=== PATIENT | male | born 1980 | race Two or more races ===

== ENCOUNTER 2018-10-15 08:25 | Observation (INO) ==
--- NOTE | 2018-10-15 15:42 | P.HPIM ---
History of Present Illness Primary Care Physician: UNKNOWN Chief Complaint: Chest pain History of Present Illness: This is a 38-year-old male patient with no known medical history presented to the ED with complaints of chest pain. Patient states that the chest pain has been ongoing for the past 2 weeks, he states that it initially started when he was driving, the pain was midsternal and sharp in nature, he states that the pain would come and go without any known aggravating or alleviating factors. He denies any radiation of the pain. Denies any associated nausea, vomiting, sweating, does admit to associated shortness of breath. Denies ever having this type of pain before. Patient states that this pain is been ongoing on and off for the past 2 weeks. He does admit to some lightheadedness with the pain. He states that last evening he was unable to sleep and became anxious regarding the pain and therefore this is what prompted his presentation to the ED. He denies ever having a cardiac stress test in the past. Does not know what his cholesterol is. Denies any tobacco abuse. He quit 1 year ago, smokes since his teen years. Denies any alcohol or drug use. Family history significant for diabetes. Denies any recent fevers, chills, headache, abdominal pain, nausea, vomiting, diarrhea or dysuria. Denies any recent antibiotics. Does not follow closely with the PCP. Review of Systems Review of Systems: all other systems reviewed are negative [facility] Medical History Medical History Patient denies medical problems (Acute) Surgical History Surgical History Hx of cholecystectomy (Acute) Family History Family History Other Diabetes Social History Social History Substance History: No History of Abuse Second Hand Smoke Exposure: No Smoking Status: Former smoker Tobacco Type: Cigarettes How Often Do You Have a Drink Containing Alcohol: Never Medications and Allergies Allergies Allergy/AdvReac Type Severity Reaction Status Date / Time No Known Allergies Allergy Verified 10/15/18 08:34 Home Medications Medication Instructions Recorded Confirmed Type No Known Home Medications 10/15/18 10/15/18 History Active Medications: Active Medications Nitroglycerin (Nitrostat Sl) 0.4 mg SL Q5M PRN PRN Reason: CHEST PAIN Sodium Chloride (Ns Flush) 2 ml IV.FLUSH BID JULIO Sodium Chloride (Ns Flush) 2 ml IV.FLUSH PRN PRN PRN Reason: FLUSH AFTER USING IV ACCESS Physical Exam Vital signs: Vital Signs 10/15/18 13:32 10/15/18 14:41 10/15/18 15:10 Temperature 99.2 F 99.2 F Pulse Rate 68 67 73 Respiratory Rate 18 14 Blood Pressure 112/53 L 112/53 L 112/52 L Pulse Oximetry 96 95 93 L Intake & Output 10/14/18 10/15/18 10/15/18 18:59 06:59 18:59 Weight 157.2 kg Other: Date of Last Bowel Movement 10/14/18 Weight On Admission 157.2 kg Narrative: GENERAL: Well-developed, well-nourished patient in [facility]. SKIN: Warm and dry. No rash. HEAD: Normocephalic. Atraumatic. EYES: Pupils equal and round. No scleral icterus. No injection or drainage. ENT: No nasal bleeding or discharge. Mucous membranes pink and moist. NECK: Supple. Trachea midline. CARDIOVASCULAR: Regular rate and rhythm. S1, S2 noted. No murmur appreciated. RESPIRATORY: No accessory muscle use. Clear to auscultation. Breath sounds equal bilaterally. GASTROINTESTINAL: Abdomen soft, non-tender, nondistended. Normoactive bowel sounds x4. MUSCULOSKELETAL: No obvious deformities. Extremities without clubbing, cyanosis , or edema. NEUROLOGICAL: Awake and alert. No obvious cranial nerve deficits. Motor grossly within normal limits. 5/5 muscle strength in bilateral upper and lower extremities. Normal speech. PSYCHIATRIC: Appropriate mood and affect; insight and judgment normal. Caprini VTE Risk Assessment Caprini VTE Risk Assessment: No/Low Risk (score <= 1) Caprini Risk Assessment Model: Point Value = 1 Point Value = 2 Point Value = 3 Point Value = 5 Age 41-60 Minor surgery BMI > 25 kg/m2 Swollen legs Varicose veins or History of unexplained or recurrent spontaneous Oral contraceptives or hormone replacement Sepsis (< 1 month) Serious lung disease, including pneumonia (< 1 month) Abnormal pulmonary function Acute myocardial infarction Congestive heart failure (< 1 month) History of inflammatory bowel disease Medical patient at bed rest Age 61-74 Arthroscopic surgery Major open surgery (> 45 min) Laparoscopic surgery (> 45 min) Malignancy Confined to bed (> 72 hours) Immobilizing plaster cast Central venous access Age >= 75 History of VTE Family history of VTE Factor V Leiden Prothrombin [id number] Lupus anticoagulant Anticardiolipin antibodies Elevated serum homocysteine Heparin-induced thrombocytopenia Other congenital or acquired thrombophilia Stroke (< 1 month) Elective arthroplasty Hip, pelvis, or leg fracture Acute spinal cord injury (< 1 month) Prophylaxis Regimen: Total Risk Factor Score Risk Level Prophylaxis Regimen 0-1 Low Early ambulation 2 Moderate Order ONE of the following: *Sequential Compression Device (SCD) *Heparin 5000 units SQ BID 3-4 Higher Order ONE of the following medications: *Heparin 5000 units SQ TID *Enoxaparin/Lovenox 40 mg SQ daily (WT < 150 kg, CrCl > 30 mL/min) *Enoxaparin/Lovenox 30 mg SQ daily (WT < 150 kg, CrCl > 10-29 mL/min) *Enoxaparin/Lovenox 30 mg SQ BID (WT < 150 kg, CrCl > 30 mL/min) AND/OR *Sequential Compression Device (SCD) 5 or more Highest Order ONE of the following medications: *Heparin 5000 units SQ TID (Preferred with Epidurals) *Enoxaparin/Lovenox 40 mg SQ daily (WT < 150 kg, CrCl > 30 mL/min) *Enoxaparin/Lovenox 30 mg SQ daily (WT < 150 kg, CrCl > 10-29 mL/min) *Enoxaparin/Lovenox 30 mg SQ BID (WT < 150 kg, CrCl > 30 mL/min) AND *Sequential Compression Device (SCD) Assessment and Plan Plan This is a 38-year-old male patient with no known medical history presented to the ED with a 2-week complaint of chest pain. Chest pain -Patient has been admitted to chest pain center for observation. Serial EKGs and serial troponins have been ordered for ruling out ACS purposes. -Initial troponin flat. Continue to monitor trend. -EKG reviewed showing normal sinus rhythm without any ST changes does show some T wave changes in inferior leads. -Will be continued on cardiac telemetry, monitor for any arrhythmias. -Chest x-ray reviewed showing no acute cardiopulmonary disease. -BMP and CBC reviewed, essentially unremarkable. BNP less than 5. -Patient's risk factors for coronary artery disease include obesity, history of tobacco abuse. -Will check a lipid panel, added to labs. -If ACS ruled out with serial EKGs and serial troponins, patient will undergo a cardiac Lexiscan to further rule out any ischemia. Patient states he is unable to do a treadmill stress test. -Patient is stable at this time and agreeable to plan. Further hospitalization and treatment plan will depend on nuclear imaging results. DVT prophylaxis: SCDs. Ambulation. Discussed with patient, bedside RN and Dr. anderson. H&P: Quality VTE Deep Vein Thrombosis/Pulmonary Embolism Present on Admission: No
[2018-10-15 15:54] LABS: Creatine Kinase 183 U/L (39-308)
[2018-10-15] MEDS ORDERED: Regadenoson Inj 0.4 MG/5 ML Syringe IV.PUSH ONE (17:30)
[2018-10-15 18:35] VITALS: RESP 20
[2018-10-15 19:14] LABS: Chol/HDL Ratio 5.81 Ratio; HDL Cholesterol 33.9 mg/dL (40.0-60.0)
[2018-10-15 19:18] LABS: Creatine Kinase 179 U/L (39-308)
[2018-10-15] MEDS ORDERED: Acetaminophen 325 MG Tablet PO ONE (20:09)
--- NOTE | 2018-10-15 21:09 | ECG ---
Date Performed: 10/15/2018 Time Performed: 18:23:58 PTAGE: 38 years EKG: Sinus rhythm NONSPECIFIC T-WAVE ABNORMALITY BORDERLINE ECG PREVIOUS TRACING : 10/15/2018 15.24 Compared to previous tracing, nonspecific T wave abnormalit y is now present. DOCTOR: Hernandez Lisa Interpretating Date/Time 10/15/2018 21:08:24
--- NOTE | 2018-10-15 21:14 | ECG ---
Date Performed: 10/15/2018 Time Performed: 15:24:03 PTAGE: 38 years EKG: Sinus rhythm NORMAL ECG NO PREVIOUS TRACING DOCTOR: Hernandez Lisa Interpretating Date/Time 10/15/2018 21:12:56
[2018-10-15 21:34] VITALS: O2SAT 95
[2018-10-16 09:01] VITALS: BP 107/55; TEMP 96
--- NOTE | 2018-10-16 10:45 | P.PNIM ---
Subjective Interval history: Follow-up chest pain. Patient seen and examined lying in bed comfortably no apparent distress. Awaiting nuclear imaging today to further rule out any ischemia. Patient is stable denies any further chest pain. Afebrile. Vital signs stable. Physical Exam Vital signs: Vital Signs 10/15/18 13:32 10/15/18 14:41 10/15/18 15:10 Temperature 99.2 F 99.2 F Pulse Rate 68 67 73 Respiratory Rate 18 14 Blood Pressure 112/53 L 112/53 L 112/52 L Pulse Oximetry 96 95 93 L 10/15/18 16:00 10/15/18 20:00 10/16/18 00:43 Temperature 99.0 F 97.6 F Pulse Rate 81 77 75 Respiratory Rate 20 20 Blood Pressure 113/63 124/63 Pulse Oximetry 98 95 10/16/18 04:24 10/16/18 08:00 Temperature 96 F L Pulse Rate 60 71 Respiratory Rate 20 Blood Pressure 107/55 L Pulse Oximetry 95 Intake & Output 10/15/18 10/16/18 10/16/18 18:59 06:59 18:59 Intake Total 240 / 240 Output Total 475 / 475 Balance -235 / -235 Weight 157.2 kg 155.5 kg Intake: Oral 240 / 240 Output: Urine 475 / 475 Other: # Voids 5 Date of Last Bowel Movement 10/14/18 Weight On Admission 157.2 kg Narrative: GENERAL: Well-developed, well-nourished patient in [facility]. SKIN: Warm and dry. No rash. HEAD: Normocephalic. Atraumatic. EYES: Pupils equal and round. No scleral icterus. No injection or drainage. ENT: No nasal bleeding or discharge. Mucous membranes pink and moist. NECK: Supple. Trachea midline. CARDIOVASCULAR: Regular rate and rhythm. S1, S2 noted. No murmur appreciated. RESPIRATORY: No accessory muscle use. Clear to auscultation. Breath sounds equal bilaterally. GASTROINTESTINAL: Abdomen soft, non-tender, nondistended. Normoactive bowel sounds x4. MUSCULOSKELETAL: No obvious deformities. Extremities without clubbing, cyanosis , or edema. NEUROLOGICAL: Awake and alert. No obvious cranial nerve deficits. Motor grossly within normal limits. 5/5 muscle strength in bilateral upper and lower extremities. Normal speech. PSYCHIATRIC: Appropriate mood and affect; insight and judgment normal. Assessment and Plan Plan This is a 38-year-old male patient with no known medical history presented to the ED with a 2-week complaint of chest pain. Chest pain -Patient has been admitted to chest pain center for observation. Serial EKGs and serial troponins have been ordered for ruling out ACS purposes. -Serial troponins negative. -EKG reviewed showing normal sinus rhythm without any ST changes does show some T wave changes in inferior leads. -Will be continued on cardiac telemetry, monitor for any arrhythmias. None overnight. -Chest x-ray reviewed showing no acute cardiopulmonary disease. -BMP and CBC reviewed, essentially unremarkable. BNP less than 5. -Patient's risk factors for coronary artery disease include obesity, history of tobacco abuse. -Lipid panel noted, dyslipidemia noted. -ACS ruled out with serial EKGs and serial troponins, patient will undergo a cardiac Lexiscan to further rule out any ischemia. Patient states he is unable to do a treadmill stress test. -Patient is stable at this time and agreeable to plan. Further hospitalization and treatment plan will depend on nuclear imaging results. DVT prophylaxis: SCDs. Ambulation. Discussed with patient, bedside RN and Dr. anderson. Progress Note: Quality VTE Deep Vein Thrombosis/Pulmonary Embolism Present on Admission: No
--- NOTE | 2018-10-16 11:25 | NM ---
EXAM DATE: 10/16/2018 11:17 AM EST AGE/SEX: 38 years / Male INDICATIONS:Abnormal EKG. . Chest pain with dyspnea. CLINICAL DATA: This is the patient's initial encounter. Patient reports that signs and symptoms have been present for 2 weeks and indicates a pain score of 3/10. MEDICAL/SURGICAL HISTORY: None. Cholecystectomy. COMPARISON: No prior exams available for comparison. DOSE: 11 mCi Tc 99m Myoview at rest 35 mCi [id number] at stress 0.4 mg Lexiscan STRESS SYMPTOMS: Hot feeling and facial flush. EJECTION FRACTION: 60 % TECHNIQUE: The patient underwent pharmacologic stress with infusion of prescribed dose. Continuous ECG tracing was monitored during stress. Gated SPECT imaging was performed after stress and conventi onal SPECT imaging was performed at rest. The examination was performed on a SPECT/CT scanner, both attenuation and non-corrected datasets were reviewed. FINDINGS: Distribution: The maximum perfused segment at stress is in the anterolateral wall. Perfusion Study: The pattern of perfusion at stress demonstrates a defect in low anteroapical wall which corrects on the attenuation corrected images without any significant ischemia. Gated Study: There are intact wall motion and wall thickening without hypokinetic or dyskinetic segm ents. The ejection fraction is calculated at 60%. RISK CATEGORY: Low (<1% Annual Mortality Rate) CONCLUSION: 1. Negative examination. Electronically signed by: Chuy Cisneros MD Board Certified Radiologist 10/16/2018 11:23 AM EST
[2018-10-16 11:28] VITALS: PULSE 55
--- NOTE | 2018-10-16 19:28 | TR ---
Date Performed: 10/16/2018 Time Performed: 10:29:52 DOCTOR: Ralph Zelaya DRUG LIST: CLINICAL HISTORY: REASON FOR TEST: Chest pain REASON FOR ENDING: OBSERVATION: CONCLUSION: Lexiscan stress test was performed under standard four minute protocol. Radionuclide was injected one minute prior to ending the test. No electrocardiographic abormalities were present to suggest ischemia. Nuclear imaging and interpretation are pending. COMMENTS:
== END 2018-10-16 13:29 | disposition home or self-care (01) ==
LOC: PHEDDLT 08:25 → PHICU 08:25 → PH3 19:01
PROVIDERS: ADMIT Hospitalist; ATTEND Hospitalist
DX: R06.00 Dyspnea, unspecified; R07.89 Other chest pain; E78.5 Hyperlipidemia, unspecified; R94.31 Abnormal electrocardiogram [ECG] [EKG]; R42 Dizziness and giddiness; Z87.891 Personal history of nicotine dependence
CPT/HCPCS: 71010; 71045; 78452; 80053; 80061; 82550; 83520; 83880; 84484; 85025; 90760; 93005; 93017; 96360; 99291; A9502; G0378; J2785; J7040; Q9969